=== PATIENT | female | born 1955 | race Caucasian/White ===

== ENCOUNTER → 2020-01-12 | Outpatient (REF) | payer BC | LOC: M LAB REF 15:45 | PROVIDERS: ATTEND Physician Assistant | DX: Z20.828 Contact with and (suspected) exposure to other viral communicable diseases (principal); Z11.59 Encounter for screening for other viral diseases ==

== ENCOUNTER 2021-04-15 20:45 | Emergency (ER) | payer BC ==
[~2021-04-15] VITALS: Ht 162.6 cm; Wt 54.9 kg
[2021-04-15 22:24] LABS: BASO # 0.1 10^3/uL (0.0-0.2); BASO % 0.9 % (0.0-1.0); EOS # 0.1 10^3/uL (0.0-0.5); EOS % 2.5 % (0.0-3.0); HEMATOCRIT 39.9 % (36.0-47.0); HEMOGLOBIN 13.6 g/dl (12.0-15.5); LYMPH # 1.4 10^3/uL (1.5-5.0); MEAN CORPUSCULAR HEMOGLOBIN 32.5 pg (27.0-33.0); MEAN CORPUSCULAR HGB CONC 34.1 g/dl (32.0-36.5); MEAN CORPUSCULAR VOLUME 95.2 fl (80.0-96.0); MONO # 0.5 10^3/uL (0.0-0.8); MONO % 10.2 % (2.0-8.0); NEUTROPHILS # 3.2 10^3/uL (1.5-8.5); NEUTROPHILS % 60.2 % (36.0-66.0); PLATELET COUNT, AUTOMATED 243 10^3/uL (150-450); RED BLOOD COUNT 4.19 10^6/uL (4.00-5.40); WHITE BLOOD COUNT 5.3 10^3/uL (4.0-10.0)
[2021-04-15 22:52] LABS: BLOOD UREA NITROGEN 18 MG/DL (7-18); CALCIUM LEVEL 9.5 MG/DL (8.8-10.2); CARBON DIOXIDE LEVEL 28 MEQ/L (21-32); CHLORIDE LEVEL 105 MEQ/L (98-107); CK-MB VALUE MASS 1.2 NG/ML (<3.6); CPK CREATINE PHOSPHOKINASE 103 U/L (26-192); CREATININE FOR GFR 0.85 MG/DL (0.55-1.30); GLOMERULAR FILTRATION RATE > 60.0 (>45); GLUCOSE, FASTING 91 MG/DL (70-100); MB/CK RELATIVE INDEX 1.17 (< OR =4); POTASSIUM SERUM 3.8 MEQ/L (3.5-5.1); SODIUM LEVEL 139 MEQ/L (136-145); TROPONIN I < 0.02 NG/ML (< 0.10)
--- NOTE | 2021-04-15 23:27 | REPVR ---
PROCEDURE INFORMATION: Exam: XR Chest Exam date and time: 04/15/2021 10:42 PM Age: 65 years old Clinical indication: Pain; Radiating; Additional info: Chest pain TECHNIQUE: Imaging protocol: XR of the chest. Views: 1 view. COMPARISON: No relevant prior studies available. FINDINGS: Lungs: Unremarkable. No consolidation. Pleural spaces: Unremarkable. No pleural effusion. No pneumothorax. Heart/Mediastinum: Unremarkable. No cardiomegaly. Bones/joints: Unremarkable. IMPRESSION: No acute infiltrates. Electronically signed by: Vinny Page On 04/15/2021 23:27:17 PM
[2021-04-15 23:39] LABS: ALBUMIN 3.9 GM/DL (3.2-5.2); ALT/SGPT 22 U/L (12-78); BILIRUBIN,DIRECT < 0.1 MG/DL (0.0-0.2); BILIRUBIN,TOTAL 0.3 MG/DL (0.2-1.0)
[2021-04-16] MEDS ORDERED: ISOVUE-370 76% 100ML VIAL As Ordered ONE (00:37)
--- NOTE | 2021-04-16 01:05 | REPVR ---
PROCEDURE INFORMATION: Exam: CT Abdomen And Pelvis With Contrast Exam date and time: 04/16/2021 12:24 AM Age: 65 years old Clinical indication: Abdominal pain; Epigastric; Additional info: Lower substernal and epigastric pain TECHNIQUE: Imaging protocol: Computed tomography of the abdomen and pelvis with contrast. Radiation optimization: All CT scans at this facility use at least one of these dose optimization techniques: automated exposure control; mA and/or kV adjustment per patient size (includes targeted exams where dose is matched to clinical indication); or iterative reconstruction. Contrast material: ISO; Contrast volume: 100 ml; Contrast route: INTRAVENOUS (IV); COMPARISON: CR PORTABLE CHEST X-RAY 04/15/2021 10:29 PM FINDINGS: Lungs: Dependent atelectasis in the lung. Liver: Normal. No mass. Gallbladder and bile ducts: Normal. No calcified stones. No ductal dilation. Pancreas: Normal. No ductal dilation. Spleen: Normal. No splenomegaly. Adrenal glands: Normal. No mass. Kidneys and ureters: Normal. No hydronephrosis. Stomach and bowel: Moderate stool in the colon. No abnormal bowel dilatation. Mild segmental thickening of the right colon. (Series 501, image 81). Negative for colonic diverticulitis. Appendix: Appendix is normal. Intraperitoneal space: Unremarkable. No free air. No significant fluid collection. Vasculature: Unremarkable. No abdominal aortic aneurysm. Lymph nodes: Unremarkable. No enlarged lymph nodes. Urinary bladder: Unremarkable as visualized. Reproductive: Uterus is normal. Bones/joints: Mild degenerative spine. No acute fracture. Soft tissues: Unremarkable. IMPRESSION: Mild segmental thickening of the right colon. Possible peristaltic contraction versus colitis. Electronically signed by: Vinny Page On 04/16/2021 01:05:12 AM
--- NOTE | 2021-04-16 01:13 | REPVR ---
PROCEDURE INFORMATION: Exam: CTA Chest With Contrast Exam date and time: 04/16/2021 12:24 AM Age: 65 years old Clinical indication: Pain; Other: General; Additional info: Lower substernal and epigastric pain TECHNIQUE: Imaging protocol: Computed tomographic angiography of the chest with contrast. 3D rendering (Not supervised by radiologist): MIP and/or 3D reconstructed images were created by the technologist. Radiation optimization: All CT scans at this facility use at least one of these dose optimization techniques: automated exposure control; mA and/or kV adjustment per patient size (includes targeted exams where dose is matched to clinical indication); or iterative reconstruction. Contrast material: ISO; Contrast volume: 100 ml; Contrast route: INTRAVENOUS (IV); COMPARISON: CR PORTABLE CHEST X-RAY 04/15/2021 10:29 PM FINDINGS: Pulmonary arteries: Normal. No pulmonary emboli. Aorta: Ascending thoracic aorta measures up to 3.0 cm in diameter. Aortic arch measures 2.6 cm in diameter. Descending thoracic aorta measures 2.0 cm in diameter. No aortic aneurysm. No aortic dissection. Bronchial tree: Visualized bronchial tree is unremarkable. Lungs: Dependent atelectasis in the lung. Pleural spaces: Unremarkable. No pneumothorax. No pleural effusion. Heart: Unremarkable. No cardiomegaly. No pericardial effusion. Mediastinal space: Mild thickening of the distal esophagus. Lymph nodes: Unremarkable. No enlarged lymph nodes. Bones/joints: Pectus excavatum. No acute fracture. Soft tissues: Unremarkable. IMPRESSION: 1. No aortic aneurysm or dissection. 2. Mild thickening of the distal esophagus. Possible mild esophagitis. Electronically signed by: Vinny Page On 04/16/2021 01:13:24 AM
[2021-04-16 02:32] LABS: CK-MB VALUE MASS < 1.0 NG/ML (<3.6); CPK CREATINE PHOSPHOKINASE 91 U/L (26-192); TROPONIN I < 0.02 NG/ML (< 0.10)
[2021-04-16] MEDS ORDERED: SUCR1TA PO (02:35)
[2021-04-16] MEDS ORDERED: OMEP40CA4 PO (02:35)
[2021-04-16 03:00] VITALS: BP 136/68
--- NOTE | 2021-04-16 13:56 | ECGEPIP ---
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
--- NOTE | 2021-04-16 13:58 | ECGEPIP ---
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
== END 2021-04-16 03:14 | disposition home or self-care (01) ==
LOC: M ED 20:45
DX: R07.89 Other chest pain (principal); R94.31 Abnormal electrocardiogram [ECG] [EKG]; I25.2 Old myocardial infarction
CPT/HCPCS: 71045; 71275; 74177; 80048; 80076; 82550; 82553; 84484; 85025; 93005; 93041; 94760; 99285; Q9967